=== PATIENT | male | born 1990 | race Caucasian/White ===

== ENCOUNTER 2017-04-25 16:12 | Emergency (ER) | payer SELFPAY ==
[2014-08-14 20:16] VITALS: BP 115/64
== END 2017-04-25 17:00 | disposition left against medical advice (07) ==
LOC: ED 16:12
DX: Z53.21 Procedure and treatment not carried out due to patient leaving prior to being seen by health care provider (principal)
CPT/HCPCS: 99281

== ENCOUNTER 2017-10-11 10:56 | Emergency (ER) | payer BC ==
[2017-10-11 11:17] VITALS: BP 124/73
--- NOTE | 2017-10-11 11:21 | ED Physician Documentation ---
General Adult - HISTORIAN Historian: patient - HPI Stated Complaint: swelling on neck Chief Complaint: General Adult Onset: days ago Timing: still present Severity: moderate Further Comments: yes (Pt is a 27 yo male with a swelling on the R side of the back of his neck. It has been there for possibly a year, but in the last few days it has become painful and red. Pt had it looked at by a physician practice consultant last year and was told it was benign. Pt has not had n/v or fever.) - ROS CONST: no problems EYES/ENT: none CVS/RESP: none GI/: none MS/SKIN/LYMPH: other (inflammed cyst on neck.) - PAST HX Past History: none Allergies/Adverse Reactions: Allergies Allergy/AdvReac Type Severity Reaction Status Date / Time No Known Allergies Allergy Verified 10/11/17 11:15 Home Medications: Ambulatory Orders Medication Instructions Recorded NK [NK] 05/02/14 - SOCIAL HX Smoking History: non-smoker - FAMILY HX Family History: No - VITAL SIGNS Vital Signs: Vital Signs Temp Pulse Resp BP Pulse Ox 97.5 F L 60 14 124/73 98 10/11/17 11:11 10/11/17 11:11 10/11/17 11:11 10/11/17 11:11 10/11/17 11:11 - REVIEWED ASSESSMENTS Nursing Assessment Reviewed: Yes Vitals Reviewed: Yes Progress - Progress Progress: Rx Doxycycline 100 mg po bid x 10 days. Rx Tylenol #3, 1-2 po q 6 h prn. #15 f/u derm for epidermoid cyst removal when inflammation subsides. General Adult Physical Exam - PHYSICAL EXAM GENERAL APPEARANCE: mild distress EENT: ENT inspection normal, pharynx normal NECK: other (cyst on R side rear neck, appears as epidermoid with some inflammation, 2 cm.) RESPIRATORY: no resp distress CVS: reg rate & rhythm, heart sounds normal BACK: normal inspection SKIN: other (cyst on R side rear neck, appears as epidermoid with some inflammation, 2 cm.) EXTREMITIES: non-tender, normal range of motion, no evidence of injury NEURO: oriented X3, motor nml, sensation nml Discharge Clincal Impression: epidermoid cyst with some inflammation Referrals: Primary Doctor,No [Primary Care Provider] - Condition: Good Disposition: 01 HOME, SELF-CARE Decision to Admit: NO Decision Time: 11:15
== END 2017-10-11 11:35 | disposition home or self-care (01) ==
LOC: ED 10:56
DX: L72.0 Epidermal cyst (principal)

== ENCOUNTER 2017-10-20 20:17 | Emergency (ER) | payer BC, OTHER ==
[2017-10-20 20:32] VITALS: BP 147/83
[2017-10-20 20:58] LABS: BASOPHILS % 0.7 (0.0-1.5); EOSINOPHILS % 1.2 % (0.0-6.8); MEAN CORPUSCULAR HEMOGLOBIN 28.8 pg (28.0-34.0); MEAN CORPUSCULAR VOLUME 86.8 fl (80.0-100.0); MONOCYTES % 5.9 % (0.0-11.0); NEUTROPHILS # 7.2 # k/uL (1.4-7.7)
[2017-10-20 21:10] LABS: eGFR (African) > 60; eGFR (Non-African) > 60
--- NOTE | 2017-10-20 21:45 | ED Physician Documentation ---
General Adult - HISTORIAN Historian: patient - HPI Stated Complaint: Abscess Chief Complaint: General Adult Onset: days ago Timing: still present Severity: moderate Further Comments: yes (Pt is a 27 yo male with a mass on the back of his neck. Pt was seen here about 10 days ago with the same complaint. At that time the mass appeared inflamed, and pt was tx'd with doxycycline and Tylenol #3, and told to f/u with dermatology after inflammation subsided. Pt finished the course of abx. He stopped the Tylenol #3, which he said disagreed with him. He states now that he has been nauseated and has had tingling in his R hand, which he attributes to the lesion. Pt states that the lesion hurts when he turns his head. Pt had an episode of feeling hot and sweaty, but wonders if he may have been using too many blankets.) - ROS CONST: no problems EYES/ENT: none GI/: nausea MS/SKIN/LYMPH: other (mass on back of neck) NEURO/PSYCH: numbness (R hand) - PAST HX Past History: none Other History: none Surgeries/Procedures: none Allergies/Adverse Reactions: Allergies Allergy/AdvReac Type Severity Reaction Status Date / Time No Known Allergies Allergy Verified 10/20/17 20:32 Home Medications: Ambulatory Orders Medication Instructions Recorded NK 05/02/14 - SOCIAL HX Smoking History: non-smoker - FAMILY HX Family History: No - VITAL SIGNS Vital Signs: Vital Signs Temp Pulse Resp BP Pulse Ox 97.1 F L 75 16 147/83 98 10/20/17 20:18 10/20/17 20:18 10/20/17 20:18 10/20/17 20:18 10/20/17 20:18 - REVIEWED ASSESSMENTS Nursing Assessment Reviewed: Yes Vitals Reviewed: Yes Progress - Progress Progress: Zofran ODT 4 mg po [place] (5/325) 1 po in ER Pt with nausea, ? 2nd to doxycycline intermittent R hand numbness, may be radiculopathy only indirectly related to cyst (discomfort). Follow up with dermatology, Dr. Travis. Office will call you with appointment time. Rx [place] (5/325). Take one every 6 hours as needed for pain. #10. ED Results Lab/Radiology - Lab Results Lab Results: Lab Results 08/14/18 08/14/18 20:52 20:52 WBC 10.20 K/ul K/ul (4.00-12.00) RBC 5.17 M/ul M/ul (3.90-5.20) Hgb 14.9 g/dL g/dL (12.0-18.0) Hct 44.9 % % (37.0-53.0) MCV 86.8 fl fl (80.0-100.0) MCH 28.8 pg pg (28.0-34.0) MCHC 33.2 g/dL g/dL (30.0-36.0) RDW 13.4 % % (11.3-14.3) Plt Count 272 K/mm3 K/mm3 (130-400) Neut % (Auto) 70.5 % % (39.0-79.0) Lymph % (Auto) 19.9 % % (16.0-50.0) Drew % (Auto) 5.9 % % (0.0-11.0) Eos % (Auto) 1.2 % % (0.0-6.8) Baso % (Auto) 0.7 (0.0-1.5) Neut # (Auto) 7.2 # k/uL # k/uL (1.4-7.7) Lymph # (Auto) 2.0 # k/uL # k/uL (0.6-4.0) Drew # (Auto) 0.6 # k/uL # k/uL (0.0-0.9) Eos # (Auto) 0.1 # k/uL # k/uL (0.0-0.6) Baso # (Auto) 0.1 # k/uL # k/uL (0.0-0.5) Reactive Lymphs % 1.9 % % (0.0-5.0) Reactive Lymphs # 0.2 # k/uL # k/uL (0.0-0.8) Sodium 139 mmol/L mmol/L (136-145) Potassium 3.7 mmol/L mmol/L (3.5-5.1) Chloride 104 mmol/L mmol/L (98-107) Carbon Dioxide 26 mmol/L mmol/L (22-30) BUN 8 mg/dL L mg/dL (9-20) Creatinine 0.80 mg/dL mg/dL (0.66-1.25) Estimated Creat Clear 158 Est GFR ( Amer) > 60 (60 - ) Est GFR (Non-Af Amer) > 60 (60 - ) Glucose 88 mg/dL mg/dL (74-106) Calcium 8.7 mg/dL mg/dL (8.4-10.2) Total Bilirubin < 0.1 mg/dL L mg/dL (0.2-1.3) AST 21 U/L U/L (15-46) ALT 34 U/L U/L (13-69) Alkaline Phosphatase 70 U/L U/L (38-126) Total Protein 7.6 g/dL g/dL (6.3-8.2) Albumin 4.6 g/dL g/dL (3.5-5.0) - Orders Orders: ED Orders Category Date Time Status CBC/PLATELET/DIFF Routine Lab 10/20/17 20:52 Completed CMP [CMP] Routine Lab 10/20/17 20:52 Completed General Adult Physical Exam - PHYSICAL EXAM GENERAL APPEARANCE: mild distress EENT: pharynx normal NECK: supple, other (3 cm mass, posterior neck, R side, slight inflammation.) BACK: normal inspection SKIN: other (3 cm mass, posterior neck, R side, slight inflammation.) EXTREMITIES: non-tender, normal range of motion NEURO: oriented X3, motor nml, sensation nml Discharge Clincal Impression: large epidermoid cyst Referrals: Primary Doctor,No [Primary Care Provider] - Condition: Stable Disposition: 01 HOME, SELF-CARE Decision to Admit: NO Decision Time: 21:54
[2017-10-20] MEDS ORDERED: HYDROcodone /APAP 5/325 1 EACH TABLET PO ONE (21:52)
[2017-10-20] MEDS ORDERED: ONDANSETRON HCL 4 MG TAB.RAPDIS PO ONE (21:53)
== END 2017-10-20 22:09 | disposition home or self-care (01) ==
LOC: ED 20:17
DX: L72.0 Epidermal cyst (principal)
CPT/HCPCS: 80053; 85025; A9270

== ENCOUNTER 2018-11-03 18:18 | Emergency (ER) | payer OTHER ==
[2018-11-03 18:34] VITALS: BP 134/82
--- NOTE | 2018-11-03 18:40 | ED Physician Documentation ---
Nausea/Vomiting/Diarrhea - HISTORIAN Historian: patient - HPI Stated Complaint: N/V/D Chief Complaint: Nausea,Vomiting,Diarrhea Additional Information: Patient presents to ED with a 24 hour history of nausea/vomiting/diarrhea. Shukri kerr states he has been unable to keep anything down and reports 5 episodes of diarrhea today. He also states he had a low grade fever (100.0) earlier today. Other symptoms include abdominal bloating, LLQ abdominal cramping. Patient reports sick contact with similar symptoms. Onset: hours (24) Duration: waxing, waning Timing: sudden onset Context: denies: out of country travel, bad food Severity: moderate - Associated Symptoms Vomiting: frequent, bilious Diarrhea: watery Abdominal Pain: cramping, LLQ - ROS CONST: fever CVS/RESP: denies: chest pain, shortness of breath, productive cough GI/: denies: black stools, bloody urine, bloody stools EYES/ENT: none MS/SKIN/LYMPH: denies: rash NEURO/PSYCH: denies: headache - PAST HX Past History: none Surgeries/Procedures: none Allergies/Adverse Reactions: Allergies Allergy/AdvReac Type Severity Reaction Status Date / Time No Known Allergies Allergy Verified 11/03/18 18:34 Home Medications: Ambulatory Orders Medication Instructions Recorded Diphenoxylate HCl/Atropine 1 each PO Q6 PRN #20 tablet 11/03/18 [Lomotil Tablet] Ondansetron HCl Rapdis [Zofran Odt] 4 mg PO Q8 PRN #20 tab 11/03/18 - SOCIAL HX Smoking History: non-smoker Alcohol Use: none Drug Use: none - FAMILY HX Family History: none - VITAL SIGNS Vital Signs: Vital Signs Temp Pulse Resp BP Pulse Ox 98.0 F 81 16 134/82 97 11/03/18 18:20 11/03/18 18:20 11/03/18 18:20 11/03/18 18:20 11/03/18 18:20 - REVIEWED ASSESSMENTS Nursing Assessment Reviewed: Yes Vitals Reviewed: Yes ED Results Lab/Radiology - Lab Results Lab Results: Lab Results 11/03/18 11/03/18 18:44 18:44 WBC 9.60 K/ul K/ul (4.00-12.00) RBC 5.18 M/ul M/ul (3.90-5.20) Hgb 15.3 g/dL g/dL (12.0-18.0) Hct 45.7 % % (37.0-53.0) MCV 88.0 fl fl (80.0-100.0) MCH 29.6 pg pg (28.0-34.0) MCHC 33.6 g/dL g/dL (30.0-36.0) RDW 14.0 % % (11.3-14.3) Plt Count 186 K/mm3 K/mm3 (130-400) Neut % (Auto) 73.8 % % (39.0-79.0) Lymph % (Auto) 13.1 % L % (16.0-50.0) Hardy % (Auto) 10.9 % % (0.0-11.0) Eos % (Auto) 1.6 % % (0.0-6.8) Baso % (Auto) 0.6 % % (0.0-1.5) Neut # (Auto) 7.1 # k/uL # k/uL (1.4-7.7) Lymph # (Auto) 1.3 # k/uL # k/uL (0.6-4.0) Hardy # (Auto) 1.0 # k/uL H # k/uL (0.0-0.9) Eos # (Auto) 0.2 # k/uL # k/uL (0.0-0.6) Baso # (Auto) 0.1 # k/uL # k/uL (0.0-0.5) Sodium 138 mmol/L mmol/L (137-145) Potassium 3.6 mmol/L mmol/L (3.5-5.1) Chloride 101 mmol/L mmol/L (98-107) Carbon Dioxide 27 mmol/L mmol/L (22-30) Anion Gap 13.6 BUN 9 mg/dL mg/dL (9-20) Creatinine 0.80 mg/dL mg/dL (0.66-1.25) Estimated Creat Clear 183 Est GFR ( Amer) > 60 (60 - ) Est GFR (Non-Af Amer) > 60 (60 - ) Glucose 107 mg/dL H mg/dL (74-106) Calcium 8.4 mg/dL mg/dL (8.4-10.2) Total Bilirubin 0.7 mg/dL mg/dL (0.2-1.3) AST 35 U/L U/L (15-46) ALT 34 U/L U/L (13-69) Alkaline Phosphatase 75 U/L U/L (38-126) Total Protein 7.1 g/dL g/dL (6.3-8.2) Albumin 4.2 g/dL g/dL (3.5-5.0) - Orders Orders: ED Orders Category Date Time Status Place IV Lock 1T Care 11/03/18 18:30 Active CBC/PLATELET/DIFF Routine Lab 11/03/18 18:44 Completed CMP Routine Lab 11/03/18 18:44 Completed 0.9 % Sodium Chloride [Normal Saline] 1,000 ml Med 11/03/18 18:31 Active IV Q1H Diphenoxylate HCl/Atropine [Lomotil] Med 11/03/18 18:30 Discontinued 1 each PO NOW ONE Ketorolac Tromethamine [Toradol] Med 11/03/18 18:37 Discontinued 30 mg IV NOW ONE NORMAL SALINE @ 1000 MLS/HR ( 1000ml BOLUS) Med 11/03/18 19:10 Ordered 0.9 % Sodium Chloride [Normal Saline] 1,000 ml IV Q1H Ondansetron HCl/Pf [Zofran] Med 11/03/18 18:30 Discontinued 4 mg IVP NOW ONE Nausea Physical Exam - EXAM General Appearance: no acute distress, alert EENT: MEG Neck: supple Respiratory: no resp distress, chest non-tender, breath sounds normal CVS: reg rate & rhythm, heart sounds normal Abdomen: tenderness (LLQ), abnml bowel sounds (hyperactive) Back: painless ROM Skin: warm/dry, normal color Extremities: non-tender, no edema Neuro/Psych: oriented X3, mood/affect nml Discharge Clincal Impression: Gastroenteritis Prescriptions: Diphenoxylate HCl/Atropine [Lomotil Tablet] 1 each PO Q6 PRN #20 tablet PRN Reason: Diarrhea Ondansetron HCl Rapdis [Zofran Odt] 4 mg PO Q8 PRN #20 tab PRN Reason: Nausea / Vomiting Referrals: Primary Doctor,No [Primary Care Provider] - 2 Days Additional Instructions: 1. Zofran and Lomotil as directed for nausea and diarrhea 2. Tylenol and/or Ibuprofen as needed for fever/pain 3. Drink plenty of fluids to maintain proper hydration 4. Follow up with PCP within 1 week 5. Return to ER for new or worsening symptoms Condition: Stable Disposition: 01 HOME, SELF-CARE Decision to Admit: NO Date of Decison to Admit: 11/03/18 Decision Time: 19:18
[2018-11-03] MEDS: DIPHENOXYLATE /ATROPINE 2.5MG-0.025MG TABLET PO ONE (18:44)
[2018-11-03] MEDS: 0.9 % SODIUM CHLORIDE 1,000 ML IV ONE ×2 (18:44→19:22)
[2018-11-03] MEDS: ONDANSETRON HCL/PF 4 MG/ 2ML VIAL IVP ONE (18:44)
[2018-11-03] MEDS: KETOROLAC TROMETHAMINE 30 MG/1ML VIAL IV ONE (18:45)
[2018-11-03 18:49] LABS: BASOPHILS % 0.6 % (0.0-1.5); NEUTROPHILS # 7.1 # k/uL (1.4-7.7)
[2018-11-03 18:56] LABS: eGFR (Non-African) > 60
[2018-11-03] MEDS: PROMETHAZINE HCL 25 MG TABLET PO ONE (19:34)
== END 2018-11-03 19:53 | disposition home or self-care (01) ==
LOC: ED 18:18
DX: K52.9 Noninfective gastroenteritis and colitis, unspecified (principal)
CPT/HCPCS: 80053; 85025; 96360; 96361; 96372; 96374; 99284; J1885; J2405; J7030; S1016